=== PATIENT | male | born 1965 | race Caucasian/White ===

== ENCOUNTER 2017-03-13 10:59 | Emergency (ER) | payer BC ==
[~2017-03-13] VITALS: Ht 175.3 cm; Wt 102.0 kg
[~2017-03-13 10:59] MED LIST: BENI40TA30 PO; CEPH500C3 PO; DICL50 PO; SULF-154 PO; TRAM-388 PO
[2017-03-13 11:01] VITALS: BP 183/113; PULSE 91; RESP 14; TEMP 98.3; O2SAT 98
[2017-03-13 11:05] VITALS: BP 168/109
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
[2017-03-13] MEDS ORDERED: SILVER SULFADIAZINE 1% CR 50 GM JAR TOPICAL ONE (11:45)
[2017-03-13] MEDS ORDERED: TETANUS/DIPHTHERIA TOXOID ADULT 0.5 ML VIAL IM ONE (11:45)
[2017-03-13] MEDS ORDERED: IBUP800T23 PO (11:47)
[2017-03-13] MEDS ORDERED: CLIN1CAP5 PO (11:47)
== END 2017-03-13 12:05 | disposition home or self-care (01) ==
LOC: NEPK 10:59
DX: T24.302A Burn of third degree of unspecified site of left lower limb, except ankle and foot, initial encounter (principal); L03.116 Cellulitis of left lower limb; V29.3XXA Motorcycle rider (driver) (passenger) injured in unspecified nontraffic accident, initial encounter; Z23 Encounter for immunization
CPT/HCPCS: 90471; 90714

== ENCOUNTER → 2017-03-28 | Day surgery (SDC) | payer BC ==
[~2017-03-28] MED LIST changes: +ACETAMINOPHEN 1000 MG/100 ML VIAL IV ONE; +BUPIVACAINE/EPINEPHRINE 0.25% 50 ML VIAL ONE; +BUPIVACAINE/EPINEPHRINE 0.5% 50 ML VIAL ONE; -CEPH500C3 PO; +CLIN1CAP5 PO; -DICL50 PO; +IBUP800T23 PO; +KETOROLAC TROMETHAMINE 30 MG/ML (IVP) VIAL IV PUSH ONE; +LACTATED RINGER'S 1000 ML INJ 1,000 ML ONE; +MEPERIDINE HCL 50 MG/ML VIAL ONE; +MIDAZOLAM HCL 2 MG/2 ML VIAL ONE; +MORPHINE SULFATE 4 MG/ML INJ ONE; +ONDANSETRON HCL 4 MG/2 ML VIAL IV PUSH ONE; +PROPOFOL 200 MG/20 ML AMP IV ONE; -SULF-154 PO; -TRAM-388 PO; +ceFAZolin INJ 1,000 MG VIAL ONE
--- NOTE | 2017-03-28 12:05 | TN ---
cc: BABATUNDE RAMOS M.D. DATE OF SURGERY 03/28/2017 PREOPERATIVE DIAGNOSIS Gallbladder follow up with biliary colic type symptoms. POSTOPERATIVE DIAGNOSIS 1. Gallbladder follow up with biliary colic type symptoms. 2. Moderate size left inguinal hernia. Small right inguinal hernia. PROCEDURE PERFORMED Laparoscopic cholecystectomy Surgeon Babatunde Ramos MD ASSEMBLER SEAT MS Marquez RANGEL The EMPLOYEE BENEFITS MANAGER was present from beginning to the end of the case assisting in all portions of the procedure. It was necessary to have this individual in the room to assist in the above surgical procedure. The surgical procedure was assisted by the EMPLOYEE BENEFITS MANAGER. The EMPLOYEE BENEFITS MANAGER presence was necessary throughout the case for appropriate retraction, dissection, visualization, and resection of the important anatomical structures during the surgical procedure. The EMPLOYEE BENEFITS MANAGER was assisting throughout the entirety of the operation. The skill set of the EMPLOYEE BENEFITS MANAGER is medically and surgically necessary to safely complete the surgical procedure. During the surgical case the operating room neurosurgical physician assistant was working instrument table and passing instruments to the attending surgeon and EMPLOYEE BENEFITS MANAGER The EMPLOYEE BENEFITS MANAGER was directly assisting the operating surgeon and involved in the technical aspects of the surgical case. INDICATIONS This is a pleasant 51-year-old gentleman who was out of town in [place]. He had a biliary colic attack. He had imaging and labs showing a polyp and symptoms consistent with biliary colic. Plans were made for above. His CT scan did show bilateral inguinal hernias.(moderate left small right) These were confirmed laparoscopically. These were asymptomatic. PROCEDURE The patient taken to the operating room, placed in the supine position. After anesthesia, his abdomen was prepped with Betadine. We made an incision just below the umbilicus. We dissect down to the fascia which was incised. The trocar was then directly placed after confirming incision in the abdomen. The abdomen is insufflated with 15 mmHg. Two other working ports were placed, 5 mm below the xyphoid, 5 mm in between two previous placed ports. Gallbladder can be seen. It is grasped superiorly and laterally identifying the cystic duct which is small. It is doubly ligated with the hemoclips and transected. The cystic artery is almost nonexistent. It is cauterized. We then dissect the gallbladder off the gallbladder fossa. Unfortunately, a small cindy was made in the gallbladder and some bile spilled which was evacuated. No stones were spilled. We then placed the gallbladder in an EndoCatch and pulled it out through the umbilical incision and it was passed off the field. We then irrigated copiously with two liters of saline confirming hemostasis without any leakage at the site. We then checked the groin showing a moderate size left inguinal hernia and small right inguinal hernia. These are asymptomatic, one was seen on imaging. After the irrigating solution and the bile that was spilled was evacuated, CO2 was evacuated. We ensure close the 10 mm port site with 0 Vicryl in the fascial layer and 4-0 Vicryl at the three skin sites. The patient tolerated the procedure well and had no immediate postop complications. MD CHERI Orellana/BUD /11:23 AM /11:42 AM MTDMilo
== END | disposition home or self-care (01) ==
LOC: ESDC 08:36
PROVIDERS: ATTEND Surgery
DX: K81.1 Chronic cholecystitis (principal); K40.20 Bilateral inguinal hernia, without obstruction or gangrene, not specified as recurrent
CPT/HCPCS: 00790; 47562; 88304; J0131; J0690; J1885; J2175; J2250; J2270; J2405; J3010; J7120

== ENCOUNTER 2017-06-03 01:08 | Emergency (ER) | payer BC, OTHER ==
[~2017-06-03] VITALS: Ht 177.8 cm; Wt 105.0 kg
[~2017-06-03 01:08] MED LIST changes: -ACETAMINOPHEN 1000 MG/100 ML VIAL IV ONE; -BUPIVACAINE/EPINEPHRINE 0.25% 50 ML VIAL ONE; -BUPIVACAINE/EPINEPHRINE 0.5% 50 ML VIAL ONE; -KETOROLAC TROMETHAMINE 30 MG/ML (IVP) VIAL IV PUSH ONE; -LACTATED RINGER'S 1000 ML INJ 1,000 ML ONE; -MEPERIDINE HCL 50 MG/ML VIAL ONE; -MIDAZOLAM HCL 2 MG/2 ML VIAL ONE; -MORPHINE SULFATE 4 MG/ML INJ ONE; -ONDANSETRON HCL 4 MG/2 ML VIAL IV PUSH ONE; -PROPOFOL 200 MG/20 ML AMP IV ONE; -ceFAZolin INJ 1,000 MG VIAL ONE
[2017-06-03 01:13] VITALS: BP 191/112; PULSE 91; RESP 16; O2SAT 96
[2017-06-03] MEDS ORDERED: AMBI5TAB PO (01:22)
[2017-06-03] MEDS ORDERED: OFFICE MEDICATION (01:22)
[2017-06-03] MEDS ORDERED: VITA20003 (01:22)
[2017-06-03] MEDS ORDERED: BENI40TA3 PO (01:22)
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
[2017-06-03 01:30] VITALS: BP 163/95; PULSE 83; RESP 16; O2SAT 97
[2017-06-03] MEDS ORDERED: BACITRACIN OINT 0.9 GM PKT TOPICAL ONE (01:30)
[2017-06-03] MEDS ORDERED: SODIUM CHLORIDE 0.9% FLUSH 10 ML FLUSH IVF PRN (01:30)
[2017-06-03 02:18] LABS: ACETAMINOPHEN LESS THAN 2.0 MCG/ML (10.0-30.0); ANION GAP 10 MEQ/L (5-15); BICARBONATE 24.6 MEQ/L (21.0-32.0); BLOOD UREA NITROGEN 10 MG/DL (7-18); CHLORIDE 108 MEQ/L (98-107); GLOMERULAR FILTRATION RATE 93 ML/MIN (>89); POTASSIUM 3.5 MEQ/L (3.5-5.1); SODIUM (NA) 143 MEQ/L (136-145)
[2017-06-03 02:20] LABS: AMPHETAMINE, URINE NEG (NEG); BARBITURATES, URINE NEG (NEG); COCAINE, URINE NEG (NEG)
[2017-06-03 02:26] LABS: AUTOMATED NEUTROPHIL # 3.1 TH/MM3 (1.8-7.7); BASOPHIL # 0.1 TH/MM3 (0-0.2); BASOPHIL % 1.2 % (0.0-2.0); EOSINOPHIL # 0.1 TH/MM3 (0-0.4); HEMATOCRIT 43.6 % (39.0-51.0); HEMO FLAGS DIFF FINAL; LYMPH % 30.7 % (9.0-44.0); LYMPHOCYTE # 1.7 TH/MM3 (1.0-4.8); MEAN CORPUSCULAR HEMOGLOBIN 30.6 PG (27.0-34.0); MEAN CORPUSCULAR HGB CONC 34.3 % (32.0-36.0); NEUT % 57.1 % (16.0-70.0); PLATELET COUNT 254 TH/MM3 (150-450); RED BLOOD COUNT 4.89 MIL/MM3 (4.50-5.90); RED CELL DISTRIBUTION WIDTH 14.8 % (11.6-17.2); WHITE BLOOD COUNT 5.4 TH/MM3 (4.0-11.0)
[2017-06-03 02:32] VITALS: BP 146/94; PULSE 82; RESP 16; O2SAT 97
[2017-06-03] MEDS ORDERED: BACI500O9 TOPICAL (02:39)
--- NOTE | 2017-06-04 14:00 | EKG ---
Date Performed: 06/03/2017 Time Performed: 01:27:54 PTAGE: 51 years EKG: Sinus rhythm Consider INFERIOR MYOCARDIAL INFARCTION -age indeterminate ABNORMAL ECG NO PREVIOUS TRACING DOCTOR: Jonnathan Cardenas Interpretating Date/Time 06/04/2017 13:59:13
== END 2017-06-03 06:26 ==
LOC: NEPD 01:08
DX: F10.920 Alcohol use, unspecified with intoxication, uncomplicated (principal); T22.112A Burn of first degree of left forearm, initial encounter; X08.8XXA Exposure to other specified smoke, fire and flames, initial encounter; R94.31 Abnormal electrocardiogram [ECG] [EKG]
CPT/HCPCS: 80048; 80307; 85025; 93005

== ENCOUNTER 2017-12-03 16:42 | Emergency (ER) | payer BC, OTHER ==
[~2017-12-03 16:42] MED LIST changes: +AMBI5TAB PO; +BACI500O9 TOPICAL; +BENI40TA29 PO; -BENI40TA30 PO; -CLIN1CAP5 PO; -IBUP800T23 PO; +OFFICE MEDICATION; +VITA20003
[2017-12-03 16:43] VITALS: BP 211/131; PULSE 94; RESP 16; TEMP 98.2; O2SAT 99
[2017-12-03 17:59] LABS: AUTOMATED NEUTROPHIL # 3.6 TH/MM3 (1.8-7.7); BASOPHIL % 0.6 % (0.0-2.0); EOSINOPHIL % 0.4 % (0.0-4.0); HEMOGLOBIN 17.7 GM/DL (13.0-17.0); LYMPHOCYTE # 1.1 TH/MM3 (1.0-4.8); MEAN CELL VOLUME 87.9 FL (80.0-100.0); MEAN CORPUSCULAR HEMOGLOBIN 30.5 PG (27.0-34.0); MEAN CORPUSCULAR HGB CONC 34.6 % (32.0-36.0); MEAN PLATELET VOLUME 8.1 FL (7.0-11.0); MONO % 8.2 % (0.0-8.0); MONOCYTE # 0.4 TH/MM3 (0-0.9); NEUT % 68.8 % (16.0-70.0); PLATELET COUNT 258 TH/MM3 (150-450); RED CELL DISTRIBUTION WIDTH 14.4 % (11.6-17.2); WHITE BLOOD COUNT 5.2 TH/MM3 (4.0-11.0)
[2017-12-03 18:18] LABS: ALBUMIN 3.4 GM/DL (3.4-5.0); ALKALINE PHOSPHATASE 89 U/L (45-117); ALT (GPT) 54 U/L (12-78); AST (GOT) 47 U/L (15-37); BICARBONATE 26.4 MEQ/L (21.0-32.0); BLOOD UREA NITROGEN 5 MG/DL (7-18); CALCIUM 8.3 MG/DL (8.5-10.1); CHLORIDE 104 MEQ/L (98-107); CREATININE 0.69 MG/DL (0.60-1.30); GLOMERULAR FILTRATION RATE 121 ML/MIN (>89); GLUCOSE,RANDOM 161 MG/DL (74-106); LIPASE 133 U/L (73-393); SODIUM (NA) 140 MEQ/L (136-145); TOTAL BILIRUBIN ADULT 0.6 MG/DL (0.2-1.0); TOTAL PROTEIN 6.2 GM/DL (6.4-8.2)
[2017-12-03 21:34] VITALS: BP 192/121; PULSE 92; RESP 16; O2SAT 97
[2017-12-03] MEDS ORDERED: POTASSIUM CHLORIDE 10 MEQ CONTROLLED RELEASE TAB PO ONE (22:00)
--- NOTE | 2017-12-03 22:02 | PD ---
HPI Chief Complaint: GI Complaint Time Seen by Provider: 21:33 Travel History International Travel<30 days: No Contact w/Intl Traveler<30days: No Traveled to known affect area: No History of Present Illness HPI 52 y male presents to emergency department complaining of diffuse abdominal pain , cramping, frequent bowel movements and decreased appetite for approximately 2 weeks. States that his symptoms having gone on for approximately 1 month but has worsened over the last 2 weeks and came in today because today is his day off. Area patient states that he has abdominal pain after eating and has a bowel movement shortly afterwards. Patient states that his abdominal pain increases with bowel movements. Says he has had 10-15 bowel movements per day. Denies melena or bright red bleeding per rectum. States his stool has been brown and yellow. States that he has had flulike symptoms for the last 2 weeks as well. In addition, states that he has a new job with irregular hours and has been eating poorly. Patient states that he has felt bloated. States that his medical history significant for high blood pressure and he has not taken his medications today. Says he had a cholecystectomy in March 2017 as has had similar symptoms since then but this has been the worst. From a care physician is Dr. Jorge Walker. Cough and is concerned because he is "a lot of jalapenos with seeds" and is concerned that he may have diverticulitis. PFSH Past Medical History Hx Anticoagulant Therapy: Yes (ASA-STOPPED 13 DAYS AGO) Cardiovascular Problems: Yes Cerebrovascular Accident: No Diabetes: No Hypertension: Yes Myocardial Infarction: No Tetanus Vaccination: < 5 Years Influenza Vaccination: No Past Surgical History Appendectomy: Yes Cholecystectomy: Yes Social History Alcohol Use: Yes Tobacco Use: Yes (1 PPD) Substance Use: No Allergies-Medications (Allergen,Severity, Reaction): Coded Allergies: iodine (Unverified Allergy, Severe, 06/26/17) potassium iodide (Unverified Allergy, Severe, 06/26/17) povidone-iodine (Unverified Allergy, Severe, 06/26/17) shrimp (Unverified Allergy, Severe, CAN'T BREATHE/RASH, 06/26/17) sodium iodide (Unverified Allergy, Severe, 06/26/17) sodium iodide (Unverified Allergy, Severe, 06/26/17) diatrizoate meglumine (Unverified Allergy, Mild, FELT "FUNNY" AND HOT, ) gadobenic acid (Unverified Allergy, Mild, FELT "FUNNY" AND HOT, 06/26/17) gadodiamide (Unverified Allergy, Mild, FELT "FUNNY" AND HOT, 06/26/17) gadoteridol (Unverified Allergy, Mild, FELT "FUNNY" AND HOT, 06/26/17) iodixanol (Unverified Allergy, Mild, FELT "FUNNY" AND HOT, 06/26/17) iohexol (Unverified Allergy, Mild, FELT "FUNNY" AND HOT, 06/26/17) Reported Meds & Prescriptions Reported Meds & Active Scripts Active Flagyl (Metronidazole) 500 Mg Tab 500 Mg PO TID 7 Days Ciprofloxacin (Ciprofloxacin HCl) 500 Mg Tab 500 Mg PO BID 7 Days Bacitracin Topical 500 Unit/Gm Oint 1 Applic TOPICAL BID Reported Office Medication (Miscellaneous Medication) Misc Vitamin D (Cholecalciferol) 2,000 Unit Tab Benicar (Olmesartan) 40 Mg Tab 40 Mg PO DAILY Ambien (Zolpidem Tartrate) 5 Mg Tab 5 Mg PO HS PRN Review of Systems Except as stated in HPI: all other systems reviewed are Neg Physical Exam Narrative GENERAL: Well-nourished s laying comfortably in bed SKIN: Focused skin assessment warm/dry. HEAD: Atraumatic. Normocephalic. EYES: Pupils equal and round. No scleral icterus. No injection or drainage. ENT: No nasal bleeding or discharge. Mucous membranes pink and moist. NECK: Trachea midline. No JVD. CARDIOVASCULAR: Regular rate and rhythm. No murmur appreciated. RESPIRATORY: No accessory muscle use. Clear to auscultation. Breath sounds equal bilaterally. GASTROINTESTINAL: Abdomen soft, mildly tender especially lower abdominal area, distended, no organomegaly or masses. No areas of ecchymosis, caput medusa MUSCULOSKELETAL: No obvious deformities. No clubbing. No cyanosis. No edema. No CVA tenderness NEUROLOGICAL: Awake and alert. No obvious cranial nerve deficits. Motor grossly within normal limits. Normal speech. PSYCHIATRIC: Appropriate mood and affect; insight and judgment normal. Data Data Last Documented VS Vital Signs Date Time Temp Pulse Resp B/P (MAP) Pulse Ox O2 Delivery O2 Flow Rate FiO2 12/03/17 23:35 90 20 161/99 (119) 99 12/03/17 21:34 Room Air 12/03/17 16:43 98.2 Orders Orders Complete Blood Count With Diff (12/03/17 17:16) Comprehensive Metabolic Panel (12/03/17 17:16) Lipase (12/03/17 17:16) Chest, Single Ap (12/03/17 ) Potassium Chloride (Kcl) (12/03/17 22:00) Influenzae A/B Antigen (12/03/17 21:47) Ct Abd/Pel W/O Iv Contrast (12/03/17 ) Hydralazine Inj (Apresoline Inj) (12/03/17 22:15) Acetaminophen (Tylenol) (12/03/17 23:00) Sodium Chlor 0.9% 1000 Ml Inj (Ns 1000 M (12/03/17 23:00) Ed Discharge Order (12/03/17 23:30) Labs Laboratory Tests Test 12/03/17 17:23 White Blood Count 5.2 TH/MM3 Red Blood Count 5.80 MIL/MM3 Hemoglobin 17.7 GM/DL Hematocrit 51.0 % Mean Corpuscular Volume 87.9 FL Mean Corpuscular Hemoglobin 30.5 PG Mean Corpuscular Hemoglobin Concent 34.6 % Red Cell Distribution Width 14.4 % Platelet Count 258 TH/MM3 Mean Platelet Volume 8.1 FL Neutrophils (%) (Auto) 68.8 % Lymphocytes (%) (Auto) 22.0 % Monocytes (%) (Auto) 8.2 % Eosinophils (%) (Auto) 0.4 % Basophils (%) (Auto) 0.6 % Neutrophils # (Auto) 3.6 TH/MM3 Lymphocytes # (Auto) 1.1 TH/MM3 Monocytes # (Auto) 0.4 TH/MM3 Eosinophils # (Auto) 0.0 TH/MM3 Basophils # (Auto) 0.0 TH/MM3 CBC Comment DIFF FINAL Differential Comment Blood Urea Nitrogen 5 MG/DL Creatinine 0.69 MG/DL Random Glucose 161 MG/DL Total Protein 6.2 GM/DL Albumin 3.4 GM/DL Calcium Level 8.3 MG/DL Alkaline Phosphatase 89 U/L Aspartate Amino Transf (AST/SGOT) 47 U/L Alanine Aminotransferase (ALT/SGPT) 54 U/L Total Bilirubin 0.6 MG/DL Sodium Level 140 MEQ/L Potassium Level 2.9 MEQ/L Chloride Level 104 MEQ/L Carbon Dioxide Level 26.4 MEQ/L Anion Gap 10 MEQ/L Estimat Glomerular Filtration Rate 121 ML/MIN Lipase 133 U/L MDM Medical Decision Making Medical Screen Exam Complete: Yes Emergency Medical Condition: Yes Differential Diagnosis Diverticulitis, influenza, colitis, HTN Narrative Course 52 y male presents to emergency department complaining of diffuse abdominal pain , cramping, frequent bowel movements and decreased appetite for approximately 2 weeks. States that his symptoms having gone on for approximately 1 month but has worsened over the last 2 weeks and came in today because today is his day off. Area patient states that he has abdominal pain after eating and has a bowel movement shortly afterwards. Patient states that his abdominal pain increases with bowel movements. Says he has had 10-15 bowel movements per day. Denies melena or bright red bleeding per rectum. States his stool has been brown and yellow. States that he has had flulike symptoms for the last 2 weeks as well. In addition, states that he has a new job with irregular hours and has been eating poorly. Patient states that he has felt bloated. States that his medical history significant for high blood pressure and he has not taken his medications today. Says he had a cholecystectomy in March 2017 as has had similar symptoms since then but this has been the worst. From a care physician is Dr. Jorge Walker. Cough and is concerned because he is "a lot of jalapenos with seeds" and is concerned that he may have diverticulitis. Vital signs- elevated BP- pt did not take his medication. Hydralazine 10mg IV administered. Laboratory Tests Test 12/03/17 17:23 White Blood Count 5.2 TH/MM3 Red Blood Count 5.80 MIL/MM3 Hemoglobin 17.7 GM/DL Hematocrit 51.0 % Mean Corpuscular Volume 87.9 FL Mean Corpuscular Hemoglobin 30.5 PG Mean Corpuscular Hemoglobin Concent 34.6 % Red Cell Distribution Width 14.4 % Platelet Count 258 TH/MM3 Mean Platelet Volume 8.1 FL Neutrophils (%) (Auto) 68.8 % Lymphocytes (%) (Auto) 22.0 % Monocytes (%) (Auto) 8.2 % Eosinophils (%) (Auto) 0.4 % Basophils (%) (Auto) 0.6 % Neutrophils # (Auto) 3.6 TH/MM3 Lymphocytes # (Auto) 1.1 TH/MM3 Monocytes # (Auto) 0.4 TH/MM3 Eosinophils # (Auto) 0.0 TH/MM3 Basophils # (Auto) 0.0 TH/MM3 CBC Comment DIFF FINAL Differential Comment Blood Urea Nitrogen 5 MG/DL Creatinine 0.69 MG/DL Random Glucose 161 MG/DL Total Protein 6.2 GM/DL Albumin 3.4 GM/DL Calcium Level 8.3 MG/DL Alkaline Phosphatase 89 U/L Aspartate Amino Transf (AST/SGOT) 47 U/L Alanine Aminotransferase (ALT/SGPT) 54 U/L Total Bilirubin 0.6 MG/DL Sodium Level 140 MEQ/L Potassium Level 2.9 MEQ/L Chloride Level 104 MEQ/L Carbon Dioxide Level 26.4 MEQ/L Anion Gap 10 MEQ/L Estimat Glomerular Filtration Rate 121 ML/MIN Lipase 133 U/L Last Impressions Chest X-Ray 12/03/17 0000 Signed Impressions: Service Date/Time: Sunday, December 03, 2017 21:56 - CONCLUSION: 1. No active disease. Babatunde Adair MD Abdomen/Pelvis CT 12/03/17 0000 Signed Impressions: Service Date/Time: Sunday, December 03, 2017 22:27 - CONCLUSION: 1. Mild colitis without evidence for abscess, free air or free fluid. Babatunde Adair MD No leukocytosis present. lipase 133. 40 mEq potassium PO administer in the emergency department today for K 2.9. Because of the duration of his diarrhea and hypokalemia, we'll treat with Cipro and Flagyl. I strongly advised patient follow-up with a gastrointestinal doctor and perform a colonoscopy as recently discussed with his gastrointestinal physician. Advised he continue hydrating and have a nutritious diet. I suspect this colitis is secondary to his poor nutrition and abnormal work cycle resulting in stress. However I do believe it is imperative he follow up with his gastrointestinal physician as well. I gave the patient the results of his CT after explaining the findings. In addition, I advised patient to take his medications as prescribed. His blood pressure was very elevated today resulting in hydralazine administration. He states that his blood pressure has been elevated at home as well which is why he was discharged with his blood pressure. Pt states understanding and will comply. Advised to return to the emergency department for worsening or persistent symptoms. Diagnosis Primary Impression: Hypertension Qualified Codes: I10 - Essential (primary) hypertension Additional Impressions: Noncompliance with medication regimen Colitis Referrals: Family Preservation Caseworker Additional Instructions: Follow-up with a assistant to the dean as discussed. Follow-up with primary care physician within 2-3 days. Take all antibiotics as prescribed. Ensure you have adequate fluid intake with a nutritious diet. Avoid alcohol, spicy foods, or other foods that may be irritating to her stomach. Take your blood pressure medication once you get home. Scripts Metronidazole (Flagyl) 500 Mg Tab 500 MG PO TID for Infection for 7 Days, TAB 0 Refills Prov: Елена Crain 12/03/17 Ciprofloxacin (Ciprofloxacin) 500 Mg Tab 500 MG PO BID for Infection for 7 Days, #14 TAB 0 Refills Prov: Елена Crain 12/03/17 Disposition: 01 DISCHARGE HOME Condition: Stable Елена Crain Dec 03, 2017 22:02
[2017-12-03] MEDS ORDERED: hydrALAZINE HCL 20 MG/ML VIAL IV PUSH ONE (22:15)
--- NOTE | 2017-12-03 22:30 | RADRPT ---
EXAM DATE/TIME: 12/03/2017 21:56 [facility] COMPARISON: No previous studies available for comparison. INDICATIONS : Wheezing MEDICAL HISTORY : Hypertension. SURGICAL HISTORY : None. ENCOUNTER: Initial ACUITY: 2 weeks PAIN SCORE: 0/10 LOCATION: Bilateral chest FINDINGS: A single view of the chest demonstrates the lungs to be symmetrically aerated without evidence of mas s, infiltrate or effusion. The cardiomediastinal contours are unremarkable. Osseous structures are intact. CONCLUSION: 1. No active disease. Babatunde Adair MD on December 03, 2017 at 22:27 Board Certified Radiologist. This report was verified electronically.
--- NOTE | 2017-12-03 22:49 | RADRPT ---
EXAM DATE/TIME: 12/03/2017 22:27 [facility] COMPARISON: No previous studies available for comparison. INDICATIONS : Lower abdomen pain with diarrhea. ORAL CONTRAST: No oral contrast ingested. RADIATION DOSE: 19.99 CTDIvol (mGy) MEDICAL HISTORY : Cardiovascular disease. Hypertension. SURGICAL HISTORY : Appendectomy. Cholecystectomy. ENCOUNTER: Initial ACUITY: 1 day PAIN SCALE: 6/10 LOCATION: Bilateral low abdomen TECHNIQUE: Volumetric scanning of the abdomen and pelvis was performed. Using automated exposure control and ad justment of the mA and/or kV according to patient size, radiation dose was kept as low as reasonably achievable to obtain optimal diagnostic quality images. DICOM format image data is available electro nically for review and comparison. FINDINGS: Lung bases are clear. Mild fatty liver. No acute findings in the spleen, adrenals, kidneys pancreas. Previous cholecystectomy. There is mild mural thickening of the colon with some mild pericolonic fat stranding especially in th e rectosigmoid most characteristic of a mild colitis. No free fluid or free air. No bowel obstruction . CONCLUSION: 1. Mild colitis without evidence for abscess, free air or free fluid. Babatunde Adair MD on December 03, 2017 at 22:43 Board Certified Radiologist. This report was verified electronically.
[2017-12-03] MEDS ORDERED: SODIUM CHLOR 0.9% 1000 ML INJ 1,000 ML IV ONE (23:00)
[2017-12-03] MEDS ORDERED: ACETAMINOPHEN 325 MG TAB PO ONE (23:00)
[2017-12-03] MEDS ORDERED: METR-1 PO (23:22)
[2017-12-03] MEDS ORDERED: CIPR500T2 PO (23:22)
[2017-12-03 23:35] VITALS: BP 161/99
== END 2017-12-03 23:52 | disposition home or self-care (01) ==
LOC: NEPC 16:42
DX: I10 Essential (primary) hypertension (principal); K52.9 Noninfective gastroenteritis and colitis, unspecified; E87.6 Hypokalemia; F17.200 Nicotine dependence, unspecified, uncomplicated; Z91.14 Patient's other noncompliance with medication regimen
CPT/HCPCS: 71045; 74176; 80053; 83690; 85025; 87804; 96361; 96374; 99285; J0360; J7030